=== PATIENT | female | born 1980 | race American Indian/Alaskan Native ===

== ENCOUNTER 2020-06-20 08:45 | Emergency (ER) | payer OTHER ==
[2020-06-20 09:07] VITALS: BP 104/72
--- NOTE | 2020-06-20 10:24 | Emergency Department Report ---
Chief Complaint: Urogenital-Female Stated Complaint: PAINFUL URINATION; ITCHING/SWELLING Time Seen by Provider: 06/20/20 10:21 - HPI History of Present Illness: Patient is a 40-year-old female presents emergency room complaints of a vaginal yeast infection. She states that she has been on clindamycin for 5 days due to having a tooth pulled. She states yesterday she began to have vaginal itching and thick white vaginal discharge. She has not tried anything [id number] for yeast infection. She has not called her primary care doctor. She states that she does have a primary care doctor she can see. She denies any abdominal pain, fever, nausea, vomiting, diarrhea, back pain. She has a past medical history of diabetes. Her blood sugar was checked in triage and is 127. She has an allergy to penicillin, promethazine, sulfa. Vitals are normal On exam: Non toxic appearing, no acute distress atraumatic, normocephalic normal appearance of the eyes, EOMI, no periorbital edema or ecchymosis moist mucus membranes No respiratory distress, no accessory muscle use A&O x4, no focal neuro deficit Patient is presenting for what is most likely a yeast vaginitis secondary to antibiotic use Discussed with patient to use Monistat 7-day [id number], take probiotics and eat yogurt and to follow-up with her primary care physician Discussed return precautions Given the appropriate resources Medical screen exam performed and there is no threat to life or limb at this time, patient is presenting with a nonmedical emergency at this time - Exam Vital Signs: Vital Signs 06/20/20 09:03 Temperature 98.0 F Pulse Rate 72 Respiratory 18 Rate Blood Pressure 104/72 O2 Sat by Pulse 100 Oximetry MSE screening note: Focused history and physical exam performed. Due to findings the following was ordered: ED Disposition for MSE Clinical Impression: Vaginitis Qualifiers: Chronicity: acute Qualified Code(s): N76.0 - Acute vaginitis Disposition: MED SCREENING EXAM-LEFT Is pt being admited?: No Does the pt Need Aspirin: No Condition: Stable Instructions: Vaginal Yeast Infection, Adult Referrals: KEHINDE ANN MD [Staff Physician] - 2-3 Days [facility] [Provider Group] - 2-3 Days Time of Disposition: 10:22 Print Language: MOZAMBICAN
== END 2020-06-20 11:26 | disposition left against medical advice (07) ==
LOC: ED 08:45
DX: N76.0 Acute vaginitis (principal); Z53.21 Procedure and treatment not carried out due to patient leaving prior to being seen by health care provider
CPT/HCPCS: 82962